=== PATIENT | female | born 1955 | race Caucasian/White ===

== ENCOUNTER 2021-02-08 09:40 | Emergency (ER) | payer MEDICAID ==
[~2021-02-08] VITALS: Ht 170.2 cm; Wt 113.4 kg
[~2021-02-08 09:40] MED LIST: ALBUAER3 IN; AML5T PO; ASPI-543 PO; BACL10TA PO; BECL80AE11 IN; BENA40TA8 PO; CLIN300C8 PO; FLUO-125 PO; GABA-339 PO; HYDR25TA5 PO; INSU1INJ19 SC; LEVE750T15 PO; LEVO500T31 PO; LORA-622 PO; OME20T PO; SIMV10TA84 PO
[2021-02-08 10:59] LABS: Basophils # (auto) 0 10 ^3/uL (0-0.2); Basophils % (auto) 0.2 % (0.0-2.0); Eosinophils # (auto) 0.1 10 ^3/uL (0-0.8); Eosinophils % (auto) 1.1 % (0.0-7.0); Hematocrit 47.4 % (36.0-46.0); Hemoglobin 16.2 g/dL (12.2-16.2); Lymphocytes # (auto) 2.9 10 ^3/uL (0.4-5.4); Lymphocytes % (auto) 26.1 % (10.0-50.0); Mean Corpuscular Hemoglobin 29.3 pg (28.0-32.0); Mean Corpuscular Hgb Conc. 34.1 g/dL (32.0-36.0); Mean Corpuscular Volume 85.8 fL (80.0-100.0); Monocytes # (auto) 1.1 10 ^3/uL (0-1.3); Monocytes % (auto) 9.6 % (0.0-12.0); Nucleated Red Blood Cells % 0.6 %; Platelet Count (auto) 235 10^3/uL (140-450); Red Blood Cells 5.52 10^6/uL (4.0-5.20); Red Cell Distribution Width 15.1 % (11.8-14.3); White Blood Cell 11.2 10^3/uL (4.4-10.8)
[2021-02-08 11:16] LABS: Albumin 3.4 g/dL (3.4-5.0); Anion Gap 10 (5-15); Blood Urea Nitrogen 17 mg/dL (7-18); Calcium 8.7 mg/dL (8.5-10.1); Carbon Dioxide 26 mmol/L (21-32); Chloride 102 mmol/L (98-107); Glucose 171 mg/dL (74-106); Potassium 3.9 mmol/L (3.5-5.1); Sodium 138 mmol/L (136-145)
[2021-02-08 11:22] LABS: Alanine Aminotransferase 23 U/L (13-56); Alkaline Phosphatase 135 U/L (45-117); Aspartate Aminotransferase 23 U/L (15-37); BUN/Creatinine Ratio 17.3; Bilirubin, Total 0.4 mg/dL (0.2-1.0); GFR African American 74 mL/min; GFR Non-African American 61 mL/min; Total Protein 7.4 g/dL (6.4-8.2)
[2021-02-08] MEDS ORDERED: SODIUM CHLORIDE 0.9% 500 ML IVB ONE (11:30)
[2021-02-08] MEDS ORDERED: SODIUM CHLORIDE 0.9% 1,000 ML IV ONE (11:30)
[2021-02-08 11:47] LABS: Urine Bacteria FEW /hpf (None Seen); Urine Blood Negative /uL (Negative); Urine Hyaline Cast FEW /lpf (0 - 2); Urine Mucus FEW (None Seen); Urine Specific Gravity 1.035 (1.001-1.035); Urine WBC 2 /hpf (0 - 5)
[2021-02-08] MEDS ORDERED: cefTRIAXone 1GM/50ML D5W 50 ML IV ONE (13:15)
[2021-02-08 14:30] VITALS: BP 126/69
== END 2021-02-08 14:40 | disposition home or self-care (01) ==
LOC: ER 09:40
DX: E11.9 Type 2 diabetes mellitus without complications (principal); N39.0 Urinary tract infection, site not specified; R53.1 Weakness; F17.210 Nicotine dependence, cigarettes, uncomplicated; I10 Essential (primary) hypertension; E78.5 Hyperlipidemia, unspecified; Z86.73 Personal history of transient ischemic attack (TIA), and cerebral infarction without residual deficits
CPT/HCPCS: 36415; 71046; 80053; 81001; 82962; 83735; 84443; 84484; 85025; 96361; 96365; 99285; J0696

== ENCOUNTER 2022-02-03 18:25 | Emergency (ER) | payer MEDICAID ==
[~2022-02-03] VITALS: Ht 170.2 cm; Wt 113.4 kg
[2022-02-03 22:32] VITALS: BP 133/70
== END 2022-02-03 22:40 | disposition home or self-care (01) ==
LOC: ER 18:25
DX: S61.216A Laceration without foreign body of right little finger without damage to nail, initial encounter (principal); M25.562 Pain in left knee; I10 Essential (primary) hypertension; E11.9 Type 2 diabetes mellitus without complications; K21.9 Gastro-esophageal reflux disease without esophagitis; E78.5 Hyperlipidemia, unspecified; J45.909 Unspecified asthma, uncomplicated; F17.210 Nicotine dependence, cigarettes, uncomplicated; Z79.82 Long term (current) use of aspirin; Z79.4 Long term (current) use of insulin; Z79.899 Other long term (current) drug therapy; Z79.2 Long term (current) use of antibiotics; Y04.2XXA Assault by strike against or bumped into by another person, initial encounter; Y93.89 Activity, other specified; Y92.89 Other specified places as the place of occurrence of the external cause; Y99.8 Other external cause status
CPT/HCPCS: 12001; 72170; 73562

== ENCOUNTER 2023-11-08 10:07 | Emergency (ER) | payer OTHER, MEDICAID ==
[~2023-11-08] VITALS: Ht 170.2 cm; Wt 101.3 kg
[~2023-11-08 10:07] MED LIST changes: +BENA40TA70 PO; -BENA40TA8 PO; +CLIN300C70 PO; -CLIN300C8 PO; +SIMV10TA20 PO; -SIMV10TA84 PO
[2023-11-08 10:48] LABS: Basophils # (auto) 0.1 10 ^3/uL (0-0.2); Basophils % (auto) 1.2 % (0.0-2.0); Eosinophils # (auto) 0.2 10 ^3/uL (0-0.8); Eosinophils % (auto) 1.7 % (0.0-7.0); Hemoglobin 15.7 g/dL (12.2-16.2); Lymphocytes # (auto) 2.9 10 ^3/uL (0.4-5.4); Lymphocytes % (auto) 28.9 % (10.0-50.0); Mean Corpuscular Hemoglobin 28.7 pg (28.0-32.0); Mean Corpuscular Hgb Conc. 33.4 g/dL (32.0-36.0); Mean Corpuscular Volume 85.9 fL (80.0-100.0); Monocytes % (auto) 9.8 % (0.0-12.0); Neutrophils # (auto) 5.9 10 ^3/uL (1.6-8.6); Neutrophils % (auto) 58.4 % (37.0-80.0); Nucleated Red Blood Cells % 0.3 %; Red Blood Cells 5.47 10^6/uL (4.0-5.20); Red Cell Distribution Width 14.1 % (11.8-14.3); White Blood Cell 10.2 10^3/uL (4.4-10.8)
[2023-11-08 11:07] LABS: Alanine Aminotransferase 15 U/L (7-40); Albumin 4.2 g/dL (3.2-4.8); Alkaline Phosphatase 127 U/L (46-116); Anion Gap 6 (5-15); Aspartate Aminotransferase 16 U/L (13-40); BUN/Creatinine Ratio 15.5 (10.0-20.0); Bilirubin, Total 0.8 mg/dL (0.2-1.0); Blood Urea Nitrogen 15 mg/dL (9-23); Calcium 9.5 mg/dL (8.5-10.1); Carbon Dioxide 30 mmol/L (20-30); Chloride 101 mmol/L (98-107); Glucose 127 mg/dL (74-106); Potassium 4.3 mmol/L (3.5-5.1); Sodium 137 mmol/L (136-145); Total Protein 7.1 g/dL (5.7-8.2)
[2023-11-08 16:18] VITALS: BP 119/66; PULSE 73; RESP 18; TEMP 98.2; O2SAT 94
== END 2023-11-08 16:21 | disposition home or self-care (01) ==
LOC: ER 10:07
DX: S40.012A Contusion of left shoulder, initial encounter (principal); R07.89 Other chest pain; I10 Essential (primary) hypertension; E11.9 Type 2 diabetes mellitus without complications; E78.5 Hyperlipidemia, unspecified; K21.9 Gastro-esophageal reflux disease without esophagitis; J45.909 Unspecified asthma, uncomplicated; F17.210 Nicotine dependence, cigarettes, uncomplicated; Z86.73 Personal history of transient ischemic attack (TIA), and cerebral infarction without residual deficits; Z79.4 Long term (current) use of insulin; Z79.899 Other long term (current) drug therapy; Z79.82 Long term (current) use of aspirin; W01.0XXA Fall on same level from slipping, tripping and stumbling without subsequent striking against object, initial encounter; Y93.89 Activity, other specified; Y92.89 Other specified places as the place of occurrence of the external cause; Y99.8 Other external cause status
CPT/HCPCS: 36415; 71045; 73030; 80053; 84484; 85025; 93005